=== PATIENT | male | born 1985 | race American Indian/Alaskan Native ===

== ENCOUNTER 2016-09-07 21:42 | Emergency (ER) | payer SELFPAY ==
--- NOTE | 2016-09-08 03:12 | Emergency Department Report ---
HPI - General Chief Complaint: Extremity Injury, Lower Time Seen by Provider: 09/08/16 03:02 - HPI HPI: he is a 31-year-old male with a history of tendinitis who presents to the ED complaining of right foot pain. Patient states the bottom of his foot hurts from the past to 3 days. Patient states pain is sharp and intermittent in nature. Patient states pain is localized to foot and does not travel. Patient rates pain about a 7 out of 10. Patient states she does not take any medication at this time and has no allergies. Patient denies fever/chills/nausea/vomiting/cough pain bilaterally chest pain, shortness of breath. ED Past Medical Hx - Past Medical History Previous Medical History?: Yes Additional medical history: r foot tendonitis - Surgical History Past Surgical History?: No - Social History Smoking Status: Never Smoker Substance Use Type: None - Medications Home Medications: Home Medications Medication Instructions Recorded Confirmed Last Taken Type Naproxen [Naprosyn TAB] 500 mg PO BID #20 tablet 06/24/15 Unknown Rx traMADol [Ultram 50 MG tab] 50 mg PO Q6HR PRN #12 tablet 06/24/15 Unknown Rx Cyclobenzaprine HCl [Flexeril 5 MG 5 mg PO QHS #20 tab 09/08/16 Unknown Rx TAB] Ibuprofen [Motrin 800 MG tab] 800 mg PO TID #30 tablet 09/08/16 Unknown Rx ED Review of Systems ROS: Stated complaint: FOOT PAIN Other details as noted in HPI Constitutional: denies: chills, fever Eyes: denies: eye pain, eye discharge, vision change ENT: denies: ear pain, throat pain Respiratory: denies: cough, shortness of breath, wheezing Cardiovascular: denies: chest pain, palpitations Endocrine: no symptoms reported Gastrointestinal: denies: abdominal pain, nausea, diarrhea Genitourinary: denies: urgency, dysuria Musculoskeletal: arthralgia. denies: back pain, joint swelling Skin: denies: rash, lesions Neurological: denies: headache, weakness, paresthesias Psychiatric: denies: anxiety, depression Hematological/Lymphatic: denies: easy bleeding, easy bruising Physical Exam - Physical Exam Vital Signs: Vital Signs 09/07/16 22:53 Temperature 98.4 F Pulse Rate 90 Respiratory 18 Rate Blood Pressure 158/100 O2 Sat by Pulse 100 Oximetry Physical Exam: GENERAL: Alert and oriented x3, no apparent distress, Normal Gait, atraumatic. HEAD: Head is normocephalic and a-traumatic. EYES: Extra ocular muscles are intact. Pupils are equal, round, and reactive to light and accommodation. EARS: symetrical, atraumatic, non tender, gross auditory nml bilaterally. NOSE: Nose symetrical, Nontender,Nares appeared normal. MOUTH:Mouth is well hydrated and without lesions Patent airways. NECK: Supple. Non edematous, No carotid bruits. No lymphadenopathy or thyromegaly. LUNGS: Symetrical with respiration, No wheezing, no rales or crackles, CTAB. HEART: S1, S2 present, regular rate and rhythm without murmur, no rubs, no gallops. EXTREMITIES/MUSCULOSKELETAL: No cyanosis, clubbing, rash, lesions or edema. Full ROM bilaterally. UE/LE Pulses 2+ bilaterally. NEUROLOGIC: No focal Deficit, Cranial nerves II through XII are grossly intact. No loss of sensation, SKIN: Warm and dry, No lesions, No ulceration or induration present. ED Course Vital Signs 09/07/16 22:53 Temperature 98.4 F Pulse Rate 90 Respiratory 18 Rate Blood Pressure 158/100 O2 Sat by Pulse 100 Oximetry ED Medical Decision Making - Medical Decision Making 31-year-old male presents with nonspecific foot pain ED course: Patient received 800 mg of Motrin. Discussed the patient follow up with. [employer]. Podiatry referral was given. Discussed with patient to take medication as prescribed. Discussed all medications of Motrin and Flexeril. Vital signs stable prior to discharge. Patient is in no acute or respiratory distress. Critical care attestation.: If time is entered above; I have spent that time in minutes in the direct care of this critically ill patient, excluding procedure time. ED Disposition Clinical Impression: Foot pain, right Arthralgia Qualifiers: Joint pain location: foot Laterality: right Qualified Code(s): M25.571 - Pain in right ankle and joints of right foot Disposition: DISCHARGED TO HOME OR SELFCARE Is pt being admited?: No Does the pt Need Aspirin: No Condition: Stable Instructions: Arthralgia (ED) Prescriptions: Cyclobenzaprine HCl [Flexeril 5 MG TAB] 5 mg PO QHS #20 tab Ibuprofen [Motrin 800 MG tab] 800 mg PO TID #30 tablet Referrals: KEN DORANTES MD [Referring] - 3-5 Days QUETA GUERRA MD [Referring] - 3-5 Days EDI SALGADO MD [Staff Physician] - 3-5 Days Time of Disposition: 04:20
[2016-09-08] MEDS ORDERED: MOTRIN PO ONE (03:56)
[2016-09-08 04:32] VITALS: BP 130/87
== END 2016-09-08 04:31 | disposition home or self-care (01) ==
LOC: ED 21:42
DX: M25.571 Pain in right ankle and joints of right foot (principal)
CPT/HCPCS: 99282